=== PATIENT | female | born 1995 | race Caucasian/White ===

== ENCOUNTER 2021-02-01 09:27 | Emergency (ER) | payer OTHER ==
[~2021-02-01] VITALS: Ht 172.7 cm; Wt 72.0 kg
--- NOTE | 2021-02-01 10:17 | NUR ---
PA at bedside for assessment.
--- NOTE | 2021-02-01 10:19 | NUR ---
headend technician reports pt in restroom getting UA sample and will be moving to room 31. Not seen by RN for assessment yet.
--- NOTE | 2021-02-01 10:41 | NUR ---
pt states IUD placed 6 years ago. has minimal bleeding 1-2 for menstration. Currently been 2 weeks of heavy bleeding. pt states she has pain that comes in goes to the left lower quad. Descriibes as sharp.
--- NOTE | 2021-02-01 10:53 | NUR ---
U/S at bedside. This RN at bedside as a academic advising director.
[2021-02-01 11:05] LABS: MICROSCOPIC INDICATED
[2021-02-01 11:48] VITALS: BP 107/70
--- NOTE | 2021-02-01 13:39 | NUR ---
Dr. Cramer at bedside completing pelvic exam.
--- NOTE | 2021-02-01 13:41 | NUR ---
Report given to Leatha
[2021-02-01] MEDS ORDERED: HYDROcodone/APAP 5/325 TABLET ONE (13:57)
[2021-02-01] MEDS ORDERED: HYDROcodone/APAP 5/325 TABLET PO ONE (14:00)
--- NOTE | 2021-02-01 14:22 | NUR ---
First contact for dc, pt verbalizes understanding of instruct. To annetta/yusuf pcp
== END 2021-02-01 14:23 | disposition home or self-care (01) ==
LOC: ED 14:15
DX: R10.2 Pelvic and perineal pain (principal); N92.4 Excessive bleeding in the premenopausal period; N93.8 Other specified abnormal uterine and vaginal bleeding
CPT/HCPCS: 36415; 76830; 81001; 84703; 87086; 99284